=== PATIENT | male | born 1985 | race Two or more races ===

== ENCOUNTER 2025-06-10 22:53 | Emergency (ER) | payer OTHER, SELFPAY ==
[2025-06-10 22:54] VITALS: BMI 34.0
--- NOTE | 2025-06-10 23:04 | XR_ITS ---
EXAMINATION: Left hand 3 views TECHNIQUE: AP, oblique, lateral left hand 3 views INDICATIONS: Puncture injury to the hand today, hand pain Date and time: June 10, 2025: 2304 hours FINDINGS: No acute fracture No dislocation No opaque foreign body IMPRESSION: No opaque foreign body
[2025-06-10 23:45] VITALS: BP 155/98; PULSE 67; RESP 18; TEMP 36.7; O2SAT 97
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
== END 2025-06-11 01:14 | disposition home or self-care (01) ==
PROVIDERS: Emergency Provider Emergency Medicine
DX: S61.439A Puncture wound without foreign body of unspecified hand, initial encounter (principal); Z23 Encounter for immunization
CPT/HCPCS: 90715; 73130; 99283; A9270